=== PATIENT | female | born 1970 | race Caucasian/White ===

== ENCOUNTER 2018-09-26 08:41 | Outpatient (CLI) | payer BC ==
--- NOTE | 2018-09-26 09:48 | MMO ---
Left Breast MAMMO Unilat Diag [facility] LT+[facility]. CLINICAL HISTORY: Patient is 48 years old and is seen for diagnostic exam. VIEWS: The views performed were: left mediolateral oblique with tomosynthesis; left mediolateral with tomosynthesis; and left exaggerated craniocaudal with tomosynthesis. FILMS COMPARED: The present examination has been compared to prior imaging studies performed at [facility] on 09/17/2018, and at [facility] on 09/26/2018. MAMMOGRAM FINDINGS: The breast is heterogeneously dense, which could obscure a lesion on mammography. Benign 3 mm cyst upper inner left breast. There are no suspicious masses, suspicious calcifications, or new areas of architectural distortion. IMPRESSION: THERE IS NO MAMMOGRAPHIC EVIDENCE OF MALIGNANCY. A ROUTINE FOLLOW-UP MAMMOGRAM IN 1 YEAR IS RECOMMENDED. THE RESULTS OF THIS EXAM WERE SENT TO THE PATIENT. ACR BI-RADS Category 2 - Benign finding MAMMOGRAPHY NOTE: 1. A negative mammogram report should not delay a biopsy if a dominant of clinically suspicious mass is present. 2. Approximately 10% to 15% of breast cancers are not detected by mammography. 3. Adenosis and dense breasts may obscure an underlying neoplasm. Reported by: Shaun MARR Electonically Signed: [id number]
--- NOTE | 2018-09-26 10:59 | ULT ---
ULTRASOUND LEFT BREAST: Date: 09/26/18 HISTORY: Left breast mass. COMPARISON: Mammogram same date. Prior mammogram from 09/17/18. FINDINGS: Corresponding to the round mass in left breast seen on mammogram in upper inner quadrant, is a 3.0 x 2.0 mm anechoic cyst. IMPRESSION: BI-RADS Category 2 - Benign findings. Continued screening is recommended. POS: OFF
== END 2018-09-26 08:42 | disposition home or self-care (01) ==
LOC: BICMAMMO 08:41
PROVIDERS: ATTEND Obstetrics & Gynecology
DX: N63.20 Unspecified lump in the left breast, unspecified quadrant (principal)
CPT/HCPCS: G0279